=== PATIENT | female | born 1980 | race African-American/Black ===

== ENCOUNTER 2018-07-14 22:06 | Emergency (ER) | payer BC, OTHER ==
[2018-07-14 22:15] VITALS: TEMP 97.6
--- NOTE | 2018-07-14 22:18 | PDOC ---
History of Present Illness - General Chief Complaint: Pain, Acute Stated Complaint: ABDOMINAL PAIN Time Seen by Provider: 07/14/18 22:18 History Source: Patient - History of Present Illness Initial Comments: 07/14/18 22:44 The patient is a 37 year old A7 (3 miscarriages, 4 elective abortions) female who presents with vaginal bleeding. Patient experienced a gush of blood with urination this evening and continuous bleeding since that time prompting her visit to the ED this evening. Endorses some mild abdominal cramping c/w menstrual cramps. H/o Misoprostol in mid June. At her follow up appointment in late June an ultrasound showed retained gestational sac and patient was given the pill regimen a second time. A third ultrasound on showed retained gestational sac and patient took a third round of Misoprostol vaginally with 1-2 days of vaginal bleeding. LMP was April 26, 2018. Patient did not have a LMP last month and her next scheduled LMP is 07/16. Patient has a previously scheduled appointment with her OB-Perinatal Nurse tomorrow ( 07/15/18). The patient denies chest pain, shortness of breath, nausea/vomiting, diarrhea/ constipation, numbness/tingling, recent travel or sick contacts. NDKA Surgical: none reported Social: social alcohol, denies other toxic habits PMD: Dr. Ricky Murillo OB-Perinatal Nurse: Dr. Howell As per EMR, patient is O Positive and previously evaluated in our ED for vaginal bleeding in 2013 at which time she was diagnosed with SAB. Past History - Past Medical History Allergies/Adverse Reactions: Allergies Allergy/AdvReac Type Severity Reaction Status Date / Time shellfish derived AdvReac Intermediate Verified 08/19/13 12:20 Home Medications: Ambulatory Orders Biotin 10,000 mg PO DAILY 07/13/13 Doxycycline Hyclate [Vibramycin -] 100 mg PO BID #6 cap 08/19/13 Ibuprofen [Motrin -] 600 mg PO Q6H PRN #30 tablet 08/19/13 Anemia: Yes Asthma: No Cancer: No Cardiac Disorders: No CVA: No COPD: No CHF: No Dementia: No Diabetes: No GI Disorders: No Disorders: No HTN: No Hypercholesterolemia: No Liver Disease: No Seizures: No Thyroid Disease: No - Surgical History Abdominal Surgery: No Appendectomy: No Cardiac Surgery: No Cholecystectomy: No Lung Surgery: No Neurologic Surgery: No Orthopedic Surgery: No - Reproductive History (#): 3 Para: 2 Spontaneous : 1 - Suicide/Smoking/Psychosocial Hx Smoking History: Unknown if ever smoked Have you smoked in the past 12 months: No Hx Alcohol Use: Yes (OCCASION) Drug/Substance Use Hx: No Substance Use Type: Alcohol Hx Substance Use Treatment: No Review of Systems - Review of Systems Constitutional: No: Chills, Fever HEENTM: No: Recent change in vision Respiratory: No: Cough, Shortness of Breath Cardiac (ROS): No: Chest Pain, Lightheadedness, Palpitations, Syncope ABD/GI: Yes: Abdominal cramping. No: Constipated, Diarrhea, Nausea, Vomiting : Yes: Other (vaginal bleeding) *Physical Exam - Vital Signs Last Vital Signs Temp Pulse Resp BP Pulse Ox 97.6 F 88 20 122/73 100 07/14/18 22:09 07/14/18 22:09 07/14/18 22:09 07/14/18 22:09 07/14/18 22:09 - Physical Exam General Appearance: Yes: Nourished, Appropriately Dressed HEENT: positive: Normal Voice, Hearing Grossly Normal Neck: positive: Trachea midline, Supple Respiratory/Chest: positive: Lungs Clear, Normal Breath Sounds Cardiovascular: positive: S1, S2. negative: Edema, JVD, Murmur Vascular Pulses: Dorsalis-Pedis (R): 2+, Doralis-Pedis (L): 2+ Female Pelvic Exam: positive: other (blood filled vaginal vault, cervical os not visualized 2/2 to blood) Gastrointestinal/Abdominal: positive: Normal Bowel Sounds, Soft. negative: Tenderness Extremity: positive: Normal Capillary Refill, Normal Inspection Integumentary: positive: Normal Color, Dry, Warm ED Treatment Course - LABORATORY CBC & Chemistry Diagram: 07/14/18 22:30 07/14/18 22:30 Medical Decision Making - Medical Decision Making 07/14/18 22:47 37 year old female with acute onset of vaginal bleeding. S/p failed medical with Misoprostol x3. Acute onset of bleeding today. VS unremarkable. - Will obtain TVUS to evaluate for retained POC. Also consider normal menses. - As per EMR, patient O Positive, no need for Rhogam. - Pelvic exam, basic labs, UA/UCx pending, coags pending. IV hydration. - Reassess. 07/14/18 23:06 Hb stable @ 11.1 07/14/18 23:19 Pelvic exams shows blood filled vaginal vault, cervical os not visible CMP, Coags hemolyzed, redraw pending Patient's UA shows blood clots and small amount of tissue 07/14/18 23:44 Patient's to U/S 07/14/18 23:54 Patient signed out to Dr. Gann (Resident) and Dr. Jeronimo (Attending) for further care. TVUS pending. Likely disposition is d/c home with close overnight babysitter follow-up as previously scheduled. At discharge, patient to be given information on contraception options. *DC/Admit/Observation/Transfer Diagnosis at time of Disposition: Vaginal bleeding - Referrals Referrals: Ricky Murillo MD [Primary Care Provider] - Shannon Howell MD [Staff Physician] - - Patient Instructions Printed Discharge Instructions: Expand Your Contraceptive Options: Consider the IUD, Oral Contraceptives: Risks and Benefits - Post Discharge Activity
[2018-07-14] MEDS ORDERED: SODIUM CHLORIDE 0.9% 500 ML INFUS.BAG IV ONE (22:37)
[2018-07-14 22:53] LABS: BASO % 0.9 % (0-2.0); EOS % 2.1 % (0-4.5); HEMATOCRIT 33.9 % (32.4-45.2); HEMOGLOBIN 11.1 GM/dL (10.7-15.3); LYMPH % 26.9 % (8-40); MCH 29.5 pg (25.7-33.7); MCHC 32.8 g/dl (32.0-36.0); MEAN CELL VOLUME 90.1 fl (80-96); MEAN PLT VOLUME 10.4 fl (7.5-11.1); MONO % 5.4 % (3.8-10.2); NEUT % 64.7 % (42.8-82.8); PLATELET COUNT 204 K/MM3 (134-434); RBC 3.76 M/mm3 (3.60-5.2); RDW 14.1 % (11.6-15.6); WHITE BLOOD COUNT 11.1 K/mm3 (4.0-10.0)
--- NOTE | 2018-07-14 23:54 | PDOC ---
*Physical Exam - Vital Signs Last Vital Signs Temp Pulse Resp BP Pulse Ox 97.6 F 88 20 122/73 100 07/14/18 22:09 07/14/18 22:09 07/14/18 22:09 07/14/18 22:09 07/14/18 22:09 <Preet Gann - Last Filed: 07/14/18 23:54> - Vital Signs Last Vital Signs Temp Pulse Resp BP Pulse Ox 97.6 F 88 20 122/73 100 07/14/18 22:09 07/14/18 22:09 07/14/18 22:09 07/14/18 22:09 07/14/18 22:09 <Candida Jeronimo - Last Filed: 07/15/18 02:22> ED Treatment Course - LABORATORY CBC & Chemistry Diagram: 07/14/18 22:30 07/14/18 22:30 - ADDITIONAL ORDERS Additional order review: Laboratory Results 07/14/18 07/14/18 22:30 22:30 PT with INR Cancelled INR Cancelled PTT (Actin FS) Cancelled Sodium Cancelled Potassium Cancelled Chloride Cancelled Carbon Dioxide Cancelled Anion Gap Cancelled BUN Cancelled Creatinine Cancelled Est GFR (CKD-EPI)AfAm Cancelled Est GFR (CKD-EPI)NonAf Cancelled Random Glucose Cancelled Calcium Cancelled Total Bilirubin Cancelled AST Cancelled ALT Cancelled Alkaline Phosphatase Cancelled Total Protein Cancelled Albumin Cancelled Beta HCG, Quant 228.4 07/14/18 22:30 RBC 3.76 MCV 90.1 MCHC 32.8 RDW 14.1 MPV 10.4 Neutrophils % 64.7 Lymphocytes % 26.9 Monocytes % 5.4 Eosinophils % 2.1 Basophils % 0.9 - Medications Given in the ED: ED Medications Discontinued Medications Generic Name Dose Route Start Last Admin Trade Name Freq PRN Reason Stop Dose Admin Sodium Chloride 1,000 ml 07/14/18 22:37 07/14/18 22:56 Normal Saline - IV 07/14/18 22:38 1,000 ml ONCE ONE Administration <Preet Gann - Last Filed: 07/14/18 23:54> - LABORATORY CBC & Chemistry Diagram: 07/14/18 22:30 07/14/18 23:32 - ADDITIONAL ORDERS Additional order review: Laboratory Results 07/14/18 07/14/18 07/14/18 23:32 23:32 23:32 PT with INR 12.70 INR 1.08 PTT (Actin FS) Sodium 136 Potassium 4.0 Chloride 107 Carbon Dioxide 25 Anion Gap 4 L BUN 11 Creatinine 0.7 Est GFR (CKD-EPI)AfAm 130.10 Est GFR (CKD-EPI)NonAf 112.25 Random Glucose 95 Calcium 8.8 Total Bilirubin 0.3 AST 14 L ALT 18 Alkaline Phosphatase 53 Total Protein 7.5 Albumin 4.0 Beta HCG, Quant Urine Color [place] Urine Appearance Clear Urine pH 6.5 Ur Specific [place] 1.010 Urine Protein Trace Urine Glucose (UA) Negative Urine Ketones Negative Urine Blood 3+ H Urine Nitrite Negative Urine Bilirubin Negative Urine Urobilinogen 0.2 Ur Leukocyte Esterase Trace Urine WBC (Auto) 3 Urine RBC (Auto) 529 Urine Casts (Auto) 1 U Epithel Cells (Auto) 1.3 Urine Bacteria (Auto) 2.0 07/14/18 07/14/18 22:30 22:30 PT with INR Cancelled INR Cancelled PTT (Actin FS) Cancelled Sodium Cancelled Potassium Cancelled Chloride Cancelled Carbon Dioxide Cancelled Anion Gap Cancelled BUN Cancelled Creatinine Cancelled Est GFR (CKD-EPI)AfAm Cancelled Est GFR (CKD-EPI)NonAf Cancelled Random Glucose Cancelled Calcium Cancelled Total Bilirubin Cancelled AST Cancelled ALT Cancelled Alkaline Phosphatase Cancelled Total Protein Cancelled Albumin Cancelled Beta HCG, Quant 228.4 Urine Color Urine Appearance Urine pH Ur Specific [place] Urine Protein Urine Glucose (UA) Urine Ketones Urine Blood Urine Nitrite Urine Bilirubin Urine Urobilinogen Ur Leukocyte Esterase Urine WBC (Auto) Urine RBC (Auto) Urine Casts (Auto) U Epithel Cells (Auto) Urine Bacteria (Auto) 07/14/18 22:30 RBC 3.76 MCV 90.1 MCHC 32.8 RDW 14.1 MPV 10.4 Neutrophils % 64.7 Lymphocytes % 26.9 Monocytes % 5.4 Eosinophils % 2.1 Basophils % 0.9 - Medications Given in the ED: ED Medications Discontinued Medications Generic Name Dose Route Start Last Admin Trade Name Freq PRN Reason Stop Dose Admin Sodium Chloride 1,000 ml 07/14/18 22:37 07/14/18 22:56 Normal Saline - IV 07/14/18 22:38 1,000 ml ONCE ONE Administration <Candida Jeronimo - Last Filed: 07/15/18 02:22> *DC/Admit/Observation/Transfer <Preet Gann - Last Filed: 07/14/18 23:54> <Candida Jeronimo - Last Filed: 07/15/18 02:22> Diagnosis at time of Disposition: Vaginal bleeding Qualifiers: Weeks of gestation: less than 8 weeks Qualified Code(s): Z3A.01 - Less than 8 weeks gestation of - Discharge Dispostion Disposition: HOME Condition at time of disposition: Stable - Referrals Referrals: Shannon Howell MD [Staff Physician] - Ricky Murillo MD [Primary Care Provider] - - Patient Instructions Printed Discharge Instructions: Expand Your Contraceptive Options: Consider the IUD, Oral Contraceptives: Risks and Benefits, DI for Threatened Additional Instructions: You have a positive test . The BHCG is 228. The pelvic ultrasound showed thickened endometrium of 2.4 mm, normal ovaries with no ovarian torsion, a right ovarian follicle Please keep your appointment with your perl programmer today - Post Discharge Activity
[2018-07-15 00:07] LABS: EPI CELLS 1.3 /HPF (0-5/HPF); PH,URINE 6.5 (5.0-8.0); URINE APPEARANCE CLEAR; URINE BILIRUBIN NEGATIVE (NEGATIVE); URINE CASTS 1 /lpf (0-8); URINE COLOR ORANGE; URINE GLUCOSE (UA) NEGATIVE (NEGATIVE); URINE KETONE NEGATIVE (NEGATIVE); URINE LEUK ESTERASE TRACE (NEGATIVE); URINE NITRITE NEGATIVE (NEGATIVE); URINE PROTEIN TRACE (NEGATIVE); URINE RBC 529 /hpf (0-4); URINE UROBILINOGEN 0.2 mg/dL (0.2-1.0); URINE WBC 3 /hpf (0-5)
[2018-07-15 00:28] LABS: INR 1.08 (0.83-1.09); PROTHROMBIN TIME (PATIENT) 12.7 SEC (9.7-13.0)
[2018-07-15 00:38] LABS: BILIRUBIN,TOTAL 0.3 mg/dL (0.2-1); CALCIUM 8.8 mg/dL (8.5-10.1); CREATININE 0.7 mg/dL (0.55-1.3); TOT PROT 7.5 g/dl (6.4-8.2)
--- NOTE | 2018-07-15 02:17 | PDOC ---
Documentation entered by Casey Perez SCRIBE, acting as scribe for Candida Jeronimo MD. Candida Jeronimo MD: This documentation has been prepared by the Chris garcia Renju, SCRIBE, under my direction and personally reviewed by me in its entirety. I confirm that the documentation accurately reflects all work, treatment, procedures, and medical decision making performed by me. Attending Attestation - Resident Resident Name: Pam Schreiber - ED Attending Attestation I have performed the following: I have examined & evaluated the patient, The case was reviewed & discussed with the resident, I agree w/resident's findings & plan, Exceptions are as noted - HPI HPI: 07/14/18 23:01 37 y/o A7 (3 miscarriages, 4 elective abortions) female who presents to the ED for evaluation of continuous vaginal bleeding and cramping. Patient states she has taken a third round of Misoprostol, initially taken in mid June. Recent visits and ultrasound (07/08/18) show retained gestational sac. - Physicial Exam PE: 07/14/18 23:41 wnwd 37 yo female with recent misoprosol for termination and presents with vaginal bleeding head ncat neck supple lungs cta b/l cvs [id number] abd no rebound pelvic done by Dr Schreiber who reports vaginal bleeding with clots skin warm and dry neuro axox3,no gross focal neuro deficits psych appropriate - Medical Decision Making 07/14/18 23:45 plan pelvic ultrasound [facility] [place] 07/15/18 02:04 [facility] [place] 224 07/15/18 02:[address] Hsieh ,recommended keeping her appt with Dr Alvarado later tp07/15/18 02:15 pelvic US shows thickened endometrium 2.4 mm ,no torsion, rt follicle imp pt has appt later today w Dr Alvarado
[2018-07-15 02:23] VITALS: BP 123/74; PULSE 78
== END 2018-07-15 02:23 | disposition home or self-care (01) ==
LOC: JER 22:06
DX: O26.891 Other specified pregnancy related conditions, first trimester (principal); Z3A.00 Weeks of gestation of pregnancy not specified
CPT/HCPCS: 36415; 76830-TC; 80053; 81003; 84702; 85025; 85610; 87086; 99282-25

== ENCOUNTER 2018-07-15 16:58 | Day surgery (SDC) | payer BC ==
--- NOTE | 2018-07-15 17:08 | PDOC ---
Rapid Medical Evaluation Chief Complaint: Vaginal Bleeding Time Seen by Provider: 07/15/18 17:06 Medical Evaluation: Allergies Allergy/AdvReac Type Severity Reaction Status Date / Time shellfish derived AdvReac Intermediate Verified 07/15/18 17:06 07/15/18 17:06 HPI: Sent by CHILD WELFARE WORKER for d/c PE:No gross deficits ORDERS: Pre Op Labs Discharge Disposition - Diagnosis Incomplete - Referrals - Patient Instructions - Post Discharge Activity
[2018-07-15 17:11] VITALS: BMI 28.0
[2018-07-15 17:55] LABS: BASO % 0.7 % (0-2.0); HEMATOCRIT 32.5 % (32.4-45.2); HEMOGLOBIN 10.7 GM/dL (10.7-15.3); LYMPH % 25.8 % (8-40); MCH 30.2 pg (25.7-33.7); MEAN CELL VOLUME 91.3 fl (80-96); MEAN PLT VOLUME 9.8 fl (7.5-11.1); MONO % 4.8 % (3.8-10.2); NEUT % 66.7 % (42.8-82.8); PLATELET COUNT 194 K/MM3 (134-434); RBC 3.56 M/mm3 (3.60-5.2); RDW 14.1 % (11.6-15.6); WHITE BLOOD COUNT 8.6 K/mm3 (4.0-10.0)
--- NOTE | 2018-07-15 18:22 | PDOC ---
History of Present Illness - General Chief Complaint: Vaginal Bleeding Stated Complaint: SENT BY PCP/VAGINAL BLEEDING Time Seen by Provider: 07/15/18 17:06 History Source: Patient - History of Present Illness Timing/Duration: reports: getting worse Past History - Past Medical History Allergies/Adverse Reactions: Allergies Allergy/AdvReac Type Severity Reaction Status Date / Time shellfish derived AdvReac Intermediate Verified 07/15/18 17:06 Home Medications: Ambulatory Orders NK [No Known Home Medication] 07/15/18 Anemia: Yes Asthma: No Cancer: No Cardiac Disorders: No CVA: No COPD: No CHF: No Dementia: No Diabetes: No GI Disorders: No Disorders: No HTN: No Hypercholesterolemia: No Liver Disease: No Seizures: No Thyroid Disease: No - Surgical History Abdominal Surgery: No Appendectomy: No Cardiac Surgery: No Cholecystectomy: No Lung Surgery: No Neurologic Surgery: No Orthopedic Surgery: No - Reproductive History (#): 3 Para: 2 Spontaneous : 1 - Immunization History Immunization Up to Date: Yes - Suicide/Smoking/Psychosocial Hx Smoking History: Never smoked Have you smoked in the past 12 months: No Hx Alcohol Use: No Drug/Substance Use Hx: No Substance Use Type: Alcohol Hx Substance Use Treatment: No Review of Systems - Review of Systems Constitutional: No: Chills, Fever ABD/GI: No: Nausea, Vomiting, Abdominal cramping : No: Dysuria *Physical Exam - Vital Signs Last Vital Signs Temp Pulse Resp BP Pulse Ox 98.1 F 83 16 116/77 98 07/15/18 17:07 07/15/18 17:07 07/15/18 17:07 07/15/18 17:07 07/15/18 18:09 - Physical Exam General Appearance: Yes: Appropriately Dressed. No: Apparent Distress HEENT: positive: Normal Voice Neck: positive: Supple Respiratory/Chest: negative: Respiratory Distress Gastrointestinal/Abdominal: positive: Soft. negative: Tender Musculoskeletal: negative: CVA Tenderness Integumentary: positive: Dry, Warm Neurologic: positive: Fully Oriented, Alert, Normal Mood/Affect ED Treatment Course - LABORATORY CBC & Chemistry Diagram: 07/15/18 17:38 - ADDITIONAL ORDERS Additional order review: 07/15/18 17:38 RBC 3.56 L MCV 91.3 MCHC 33.0 RDW 14.1 MPV 9.8 Neutrophils % 66.7 Lymphocytes % 25.8 Monocytes % 4.8 Eosinophils % 2.0 Basophils % 0.7 Medical Decision Making - Medical Decision Making 07/15/18 18:20 37-year-old female (3 spon abs, 4 elec abs), s/p multiple doses of methotrexate last month for elective AB ~ 6 weeks, but continues to bleed and states she was sent in today by Dr. Alvarado to go to the OR for D&C. Patient was seen in ED at [facility] last night for significant vaginal bleeding and had ultrasound done which showed no retained products of conception and was DC' d home to follow up with her OB. Patient states when she was in her OBs office today, rpt ultrasound was done that showed retained products per patient. Denies any significant abdominal pain and no weakness, dizziness, nausea, vomiting, fever or chills at this time See exam Incomplete AB s/p multiple dose of methotrexate RPOC on US in LURE MAKER's office today Stable here -pre-op labs -property specialist c/s -admit 07/15/18 18:[address] Alvarado who informs me that the OR was already informed of patient and wants patient admitted to her service to [facility]. Also spoke to staff in the OR, who is aware that patient has not eaten since 8:30 AM today. Aware that pre-op labs are currently been sent off. States they will be ready for patient in about half an hour 07/15/18 18:36 *DC/Admit/Observation/Transfer Diagnosis at time of Disposition: Incomplete - Discharge Dispostion Condition at time of disposition: Stable Decision to Admit order: Yes - Referrals Referrals: Ricky Murillo MD [Primary Care Provider] - - Patient Instructions - Post Discharge Activity
--- NOTE | 2018-07-15 18:42 | PDOC ---
*Physical Exam - Vital Signs Last Vital Signs Temp Pulse Resp BP Pulse Ox 98.1 F 83 16 116/77 98 07/15/18 17:07 07/15/18 17:07 07/15/18 17:07 07/15/18 17:07 07/15/18 18:09 ED Treatment Course - LABORATORY CBC & Chemistry Diagram: 07/15/18 17:38 - ADDITIONAL ORDERS Additional order review: 07/15/18 17:38 RBC 3.56 L MCV 91.3 MCHC 33.0 RDW 14.1 MPV 9.8 Neutrophils % 66.7 Lymphocytes % 25.8 Monocytes % 4.8 Eosinophils % 2.0 Basophils % 0.7 Medical Decision Making - Medical Decision Making 07/15/18 18:42 Pt seen by Midlevel Provider under my direct supervision Pt interviewed and examined Ancillary studies reviewed I agree with plan as outlined by Midlevel Provider *DC/Admit/Observation/Transfer Diagnosis at time of Disposition: Incomplete - Discharge Dispostion Condition at time of disposition: Stable - Referrals - Patient Instructions - Post Discharge Activity
--- NOTE | 2018-07-15 19:09 | HP ---
Admitting History and Physical - Admission Chief Complaint: Here with continued vaginal bleeding for > 3 weeks after misoprostol given for elective termination. History of Present Illness: 37 y/o A7 here after 3 failed attempts at misoprostol termination. Was given misoprostol 3 times since the beginning of June and pt had continued bleeding almost daily since that time. Pt was seen in ED last night for heavy VB/clotting, Hgb was stable, was known to have appt with our office today and was discharged home. Pt again had heavy bleeding and passed large clot this a.m. and upon ultrasound examination in my office has retained POCs. Pt was sent back to hospital to be added on for D&C procedure. History Source: Patient, Medical Record - Past Medical History Cardiovascular: No: HTN Pulmonary: No: Asthma, COPD ...LMP: 06/06/13 ...: No (Is s/p misoprostol termination with retained products.) Heme/Onc: No: Anemia Infectious Disease: No: HIV, MRSA, STD's Psych: No: Bipolar, Depression - Past Surgical History Additional Past Surgical History: D&C - Smoking History Smoking history: Never smoked Have you smoked in the past 12 months: No - Alcohol/Substance Use Hx Alcohol Use: No - Social History History of Recent Travel: No Home Medications - Allergies Allergies/Adverse Reactions: Allergies Allergy/AdvReac Type Severity Reaction Status Date / Time shellfish derived AdvReac Intermediate Verified 07/15/18 17:06 - Home Medications Home Medications: Ambulatory Orders NK [No Known Home Medication] 07/15/18 Review of Systems - Review of Systems Constitutional: reports: No Symptoms Eyes: reports: No Symptoms HENT: reports: No Symptoms Neck: reports: No Symptoms Cardiovascular: reports: No Symptoms Respiratory: reports: No Symptoms Gastrointestinal: reports: No Symptoms Genitourinary: reports: No Symptoms Breasts: reports: No Symptoms Reported Musculoskeletal: reports: No Symptoms Integumentary: reports: No Symptoms Neurological: reports: No Symptoms Endocrine: reports: No Symptoms Hematology/Lymphatic: reports: No Symptoms Psychiatric: reports: No Symptoms Physical Examination Vital Signs: Vital Signs Temperature 98.1 F 07/15/18 17:07 Pulse Rate 83 07/15/18 17:07 Respiratory Rate 16 07/15/18 17:07 Blood Pressure 116/77 07/15/18 17:07 O2 Sat by Pulse Oximetry (%) 98 07/15/18 18:09 Constitutional: Yes: Well Nourished, No Distress, Calm Eyes: Yes: EOM Intact HENT: Yes: Normocephalic Neck: Yes: Supple Cardiovascular: Yes: Regular Rate and Rhythm Respiratory: Yes: Regular Gastrointestinal: Yes: Soft Neurological: Yes: Alert, Oriented Psychiatric: Yes: Alert, Oriented Labs: CBC, BMP 07/15/18 17:38 Imaging - Results Ultrasound: Report Reviewed, Image Reviewed Problem List - Problems (1) Retained products of conception Code(s): [id number] - Assessment/Plan 37 y/o s/p 3 failed attempts at misoprostol termination with retained POC here for D&C NPO Informed consent obtained anesthesia/nursing/OR aware RH positive
[2018-07-15 19:29] LABS: INR 1.09 (0.83-1.09); PROTHROMBIN TIME (PATIENT) 12.9 SEC (9.7-13.0)
[2018-07-15 19:36] LABS: ALBUMIN 3.8 g/dl (3.4-5.0); BILIRUBIN,TOTAL 0.5 mg/dL (0.2-1); CALCIUM 8.7 mg/dL (8.5-10.1); CREATININE 0.6 mg/dL (0.55-1.3); POTASSIUM 3.7 mmol/L (3.5-5.1); TOT PROT 7.1 g/dl (6.4-8.2)
[2018-07-15] MEDS ORDERED: KETOROLAC TROMETHAMINE 30 MG/1 ML VIAL ONE (19:36)
[2018-07-15] MEDS ORDERED: LIDOCAINE HCL/PF 2% SDV 5ML VIAL ONE (19:36)
[2018-07-15] MEDS ORDERED: DEXAMETHASONE SOD PHOSPHATE 4 MG/1 ML VIAL ONE (19:36)
[2018-07-15] MEDS ORDERED: MIDAZOLAM HCL 2 MG/2 ML SINGLE DOSE VIAL ONE ×2 (19:37)
[2018-07-15] MEDS ORDERED: PROPOFOL 20 ML ONE ×2 (19:37)
[2018-07-15] MEDS ORDERED: PROMETHAZINE HCL 25 MG/1 ML VIAL IVPUSH PRN ×2 (20:11→20:48)
[2018-07-15] MEDS ORDERED: oxyCODONE HCL 5 MG TABLET PO PRN ×2 (20:11→20:48)
[2018-07-15] MEDS ORDERED: ONDANSETRON 4 MG/2 ML VIAL IVPUSH PRN ×2 (20:11→20:48)
[2018-07-15] MEDS ORDERED: ACETAMINOPHEN 325 MG TABLET (FP) PO PRN (20:28)
--- NOTE | 2018-07-15 20:31 | OP ---
Operative Note - Note: Operative Date: 07/15/18 Pre-Operative Diagnosis: incomplete Operation: suction D&C Post-Operative Diagnosis: Same as Pre-op Surgeon: Meg Alvarado Anesthesia: MAC Specimens Removed: products of conception Estimated Blood Loss (mls): 25 Operative Report Dictated: Yes
[2018-07-15 21:23] VITALS: BP 107/91; PULSE 73; TEMP 98.9
--- NOTE | 2018-07-16 01:54 | OP ---
DATE OF OPERATION: 07/15/2018 PREOPERATIVE DIAGNOSIS: Incomplete . POSTOPERATIVE DIAGNOSIS: Incomplete . PROCEDURE: Suction dilation and curettage. SURGEON: Meg Alvarado DO FIRER HELPER: None. ANESTHESIA: MAC per Francesco De La O MD ESTIMATED BLOOD LOSS: 25 mL COMPLICATIONS: None. SPECIMENS REMOVED: Products of conception. COUNTS: All sponge and instrument counts correct. DISPOSITION: Stable to PACU. BRIEF HISTORY: Patient is a 37-year-old, G9, P2 female who had undergone an attempted medical at [facility] with 3 failed attempts, who presents to the office today with continued vaginal bleeding. On ultrasound examination, was found to have retained products of conception. The patient was admitted to [facility] and scheduled for a suction dilation and curettage. PROCEDURE: She signed consent for the procedure immediately prior. She was then taken back to the operating room, given MAC anesthesia, and placed in the dorsal lithotomy position. She was prepped and draped in the usual sterile fashion. A hard timeout was performed. Speculum was placed inside the vagina. The anterior lip of the cervix was grasped with a tenaculum and the cervix was dilated to accommodate the size 7 suction curette, which was advanced to the fundus of the uterus. Several passes with the suction curette were completed. One pass to all 4 casarez of the uterus with a sharp curette was completed until adequate uterine cry was appreciated. One final pass with the suction curette was completed to remove all of the detached tissue. All instruments were removed from the vagina. Some bleeding was noted from the tenaculum site, which was controlled with application of a ring forceps. Excellent hemostasis was then achieved. Minimal bleeding was noted from the cervical os. The patient was awoken from anesthesia. Sponge and instrument counts were correct. Patient was recovered in stable condition in the PACU after the procedure. MEG ALVARADO DO /[id number]
--- NOTE | 2018-07-17 15:39 | PATH ---
Surgical Pathology Report Patient Name: OLIVE HENLEY Med. Rec. #: [id number] /Age/Gender: 1980 (Age: 37) / F Account: [id number] Location: AMBULATORY SURG Taken: 07/15/2018 Received: 07/16/2018 Reported: 07/17/2018 Physicians: Meg Alvarado M.D. Specimen(s) Received A: PRODUCTS OF CONCEPTION B: PRODUCTS OF CONCEPTION Clinical History Incomplete Final Diagnosis A. PRODUCTS OF CONCEPTION, DILATATED AND CURETTAGE: PREDOMINANTLY BLOOD WITH NECROTIC DECIDUA AND SCANT INACTIVE ENDOMETRIUM. NO DEFINITIVE CHORIONIC VILLI ARE IDENTIFIED. B. PRODUCTS OF CONCEPTION, DILATATION AND CURETTAGE: NECROTIC DECIDUA AND BENIGN GLANDULAR ENDOCERVICAL TISSUE. NO CHORIONIC VILLI ARE IDENTIFIED. Electronically Signed Samantha Salas M.D. Gross Description A. Received in formalin, labeled "products of conception" is a 7.5 x 6 x 1 cm aggregate of blood clot with scant pink-ding tissue. No or definitive villous tissue is identified. Fringing Machine Operator sections are submitted in one cassette. B. Received in formalin, labeled "products of conception" is a 2 x 1.2 x 0.2 cm aggregate of dark brown tissue. Entirely submitted in one cassette. AE/07/16/2018 ebram/07/16/2018
== END 2018-07-15 21:56 | disposition home or self-care (01) ==
LOC: JER 16:58 → JASUSAT 18:30 → J3W 21:04 → JASUSAT 21:56
PROVIDERS: ATTEND Obstetrics & Gynecology
PROC: 10D17ZZ Extraction of Products of Conception, Retained, Via Natural or Artificial Opening (ICD-10-PCS; principal; 2018-07-15 19:39)
DX: O07.4 Failed attempted termination of pregnancy without complication (principal)
CPT/HCPCS: 36415; 80053; 84702; 85025; 85610; 86850; 86900; 86901; 88305-TC; 94760; 99284-25